=== PATIENT | female | born 1980 | race Two or more races ===

== ENCOUNTER 2020-10-26 16:45 | Emergency (ER) | payer MEDICAID, SELFPAY ==
[2020-10-26 16:49] VITALS: BP 121/87; PULSE 89; RESP 16; TEMP 36.8; O2SAT 99; BMI 32.0
[2020-10-26] MEDS: Diphth,Pertus(ACell),Tet Adult 0.5 ML SYRINGE IM (18:33)
[2020-10-26] MEDS: Lidocaine HCl 1% PF/Epi 1:200,000 30 ML VIAL INFILTRATI (18:33)
--- NOTE | 2020-10-26 18:35 | ED.WOUNDLAC ---
HPI - Wound/Laceration General Chief Complaint: Wound/Laceration Stated Complaint: lac Time Seen by Provider: 10/26/20 17:49 Source: patient Mode of arrival: ambulatory Limitations: no limitations History of Present Illness HPI narrative: 40-year-old female here with laceration to the left hand. Patient tells me she was opening up a gif with a knife in her hand slipped causing her to cut her left palm. Tetanus status unknown Related Data Allergies Allergy/AdvReac Type Severity Reaction Status Date / Time No Known Allergies Allergy Verified 10/26/20 17:14 Review of Systems Review of Systems: Yes all other systems are reviewed and are negative Constitutional: Constitutional: Reports no additional constitutional complaints, Denies body ache(s), Denies chills, Denies fever(s), Denies headache(s) and Denies weakness Eyes: Eyes: Reports no additional eye complaints and Denies change in vision ENT: Reports system reviewed and no additional complaints, except as documented, Denies dizziness, Denies headache(s), Denies nasal congestion, Denies nasal discharge and Denies neck pain Cardiovascular: Cardiovascular: Reports no additional cardiovascular complaints, Denies chest pain, Denies leg edema and Denies dyspnea Respiratory: Respiratory: Reports no additional respiratory complaints, Denies cough and Denies dyspnea Gastrointestinal: Gastrointestinal: Reports no additional gastrointestinal complaints, Denies abdominal pain, Denies diarrhea, Denies nausea and Denies vomiting Genitourinary: Genitourinary: Reports no additional female genitourinary complaints and Denies urinary incontinence Musculoskeletal: Musculoskeletal: Reports no additional musculoskeletal complaints, Denies back pain, Denies arthralgias, Denies joint swelling, Denies neck pain, Denies numbness and Denies tingling Integumentary/Breasts: Skin/Breast: Reports system reviewed and no additional complaints, except as docu and Denies rash Comments: +laceration Neurologic: Reports system reviewed and no additional complaints, except as documented, Denies Abnormal speech present, Denies dizziness, Denies headache(s), Denies numbness, Denies tingling and Denies weakness PMFSH Past Medical History Attestation statement: The following information was validated with the patient. Source: old records reviewed and nursing notes reviewed Surgical History H/O tubal ligation Social History Social History Alcohol intake: never Smoked in Last 30 Days: No Use of substances other than those prescribed or required for medical reasons: No Substance Use Type: Marijuana Advance Directives: No Advance Directives Information Provided: No Physical Exam Vital Signs: Vital Signs: Last Vital Signs Temp 98.3 F 10/26/20 16:49 Pulse 89 10/26/20 16:49 Resp 16 10/26/20 16:49 BP 121/87 10/26/20 16:49 Pulse Ox 99 10/26/20 16:49 Body Mass Index 32.0 Const: General: cooperative, healthy appearing, comfortable and no acute distress Orientation/consciousness: patient oriented x3 Limitations: no limitations HENMT: Head: Yes normal to inspection Ears: hearing grossly normal bilaterally General nose exam: Normal external nose present Face and sinus: Yes normal facial exam Mouth: Normal oral and palatal mucosa present Throat: Yes posterior oropharynx normal Eyes: General: appearance normal, both eyes and all related structures Pupils: Equal, round and reactive pupils present Neck: Neck: Yes normal visual inspection Chest: Chest palpation & inspection: normal inspection of the chest Resp: Effort & Inspection: normal respiratory effort Auscultation: clear to auscultation bilaterally Cardio: Rate: regular rate Rhythm: regular rhythm Peripheral pulses: Peripheral pulses 2+ throughout GI: Inspection: Yes normal to inspection Palpation (GI): Soft to palpation and nontender Auscultation: normal bowel sounds Back/Spine/Pelvis: Thoracic/Lumbar Spine: thoracic and lumbar spine normal to inspection Skin: General skin exam: no rashes or lesions noted Neuro: General: patient oriented x3, no focal motor deficits and normal sensation to monofilament Cranial nerves: Yes Equal, round and reactive pupils present Cognition (Neuro): normal cognition Speech: No Abnormal speech present Gait exam (Neuro): Normal gait present Motor exam (neuro): 5/5 motor strength present throughout Extrem: General: Yes normal to inspection Hand/finger images: 1. 1cm laceration with active bleeding. CMS intact proximally and distally with normal cap refill Course Course Course Narrative: 40-year-old female here with laceration to the left palmar aspect of the hand from a knife. There is a small 1 cm laceration with active bleeding at the site. CMS intact distally to the site. Tetanus status unknown so will give dose here today. 1845-see wound repair note. Tetanus updated. Reviewed worrisome signs and symptoms when to return to the emergency department. Comfortable discharge home. Procedures Procedure Narrative Procedure Narrative: Active bleeding from laceration site which was a moderate amount. Injected 5 mL of lidocaine with epinephrine to the site and bleeding was improved. Laceration Laceration 1: Site: upper extremity Side (If applicable): left Size (cm): 1 Description: linear Depth: simple, single layer Local Anesthetic: lidocaine 1% and with epi Amount of anesthesia used (mL): 5 Pre-repair: wound explored and irrigated extensively Skin layer closed with: vicryl Size (cm): 5-0 Number of sutures: 3 Technique: simple, interrupted MDM - Wound/Laceration Medical Records Attestation: I reviewed the patient's medical records. Lab Data Attestation: I reviewed the patient's lab results. Discharge Plan Discharge Clinical Impression: Laceration Patient Disposition: Home, Self-Care Instructions: Laceration (ED) Additional Instructions: Water can run over the stitches but do not like them soak in water Return in 7-10 days for removal Referrals: Physician,Unknown [Primary Care Provider] - 2 days
== END 2020-10-26 19:27 | disposition home or self-care (01) ==
PROVIDERS: Emergency Provider Emergency Medicine Emergency Medical Services
DX: S61.412A Laceration without foreign body of left hand, initial encounter (principal); M79.642 Pain in left hand; F12.90 Cannabis use, unspecified, uncomplicated; W26.0XXA Contact with knife, initial encounter; Y93.9 Activity, unspecified; Y92.9 Unspecified place or not applicable; Y99.9 Unspecified external cause status
CPT/HCPCS: 12001; 90471; 90715; 99284

== ENCOUNTER 2020-11-06 18:18 | Emergency (ER) | payer MEDICAID, SELFPAY ==
[2020-11-06 18:25] VITALS: BP 131/85; PULSE 120; RESP 18; TEMP 36.8; O2SAT 99; BMI 27.7
--- NOTE | 2020-11-06 19:42 | ED_ITS ---
HPI - General Adult General Chief complaint: General Medical Stated complaint: suture removaql Time Seen by Provider: 11/06/20 19:37 Source: patient Mode of arrival: ambulatory Limitations: no limitations History of Present Illness HPI narrative: Patient seen here October 26 for sutures placed to the left hand. Patient tells me that she delayed getting them removed due to other priorities at home. She denies any complaints.. Related Data Allergies Allergy/AdvReac Type Severity Reaction Status Date / Time No Known Allergies Allergy Verified 10/26/20 17:14 Review of Systems Review of Systems: Yes all other systems are reviewed and are negative Constitutional: Constitutional: Reports no additional constitutional complaints, Denies body ache(s), Denies chills, Denies fever(s), Denies headache(s) and Denies weakness Eyes: Eyes: Reports no additional eye complaints and Denies change in vision ENT: Reports system reviewed and no additional complaints, except as documented, Denies dizziness, Denies headache(s), Denies nasal congestion, Denies nasal discharge and Denies neck pain Cardiovascular: Cardiovascular: Reports no additional cardiovascular complaints, Denies chest pain, Denies leg edema and Denies dyspnea Respiratory: Respiratory: Reports no additional respiratory complaints, Denies cough and Denies dyspnea Gastrointestinal: Gastrointestinal: Reports no additional gastrointestinal complaints, Denies abdominal pain, Denies diarrhea, Denies nausea and Denies vomiting Genitourinary: Genitourinary: Reports no additional female genitourinary complaints and Denies urinary incontinence Musculoskeletal: Musculoskeletal: Reports no additional musculoskeletal complaints, Denies back pain, Denies arthralgias, Denies joint swelling, Denies neck pain, Denies numbness and Denies tingling Integumentary/Breasts: Skin/Breast: Reports system reviewed and no additional complaints, except as docu and Denies rash Comments: +lac Neurologic: Reports system reviewed and no additional complaints, except as documented, Denies Abnormal speech present, Denies dizziness, Denies headache(s), Denies numbness, Denies tingling and Denies weakness PMFSH Past Medical History Attestation statement: The following information was validated with the patient. Source: old records reviewed and nursing notes reviewed Surgical History H/O tubal ligation Social History Social History Alcohol intake: never Substance Use Type: Marijuana Advance Directives: No Advance Directives Information Provided: Yes Physical Exam Vital Signs: Vital Signs: Last Vital Signs Temp 98.2 F 11/06/20 18:25 Pulse 120 H 11/06/20 18:25 Resp 18 11/06/20 18:25 BP 131/85 11/06/20 18:25 Pulse Ox 99 11/06/20 18:25 Body Mass Index 27.7 Const: General: cooperative, healthy appearing, comfortable and no acute distress Orientation/consciousness: patient oriented x3 Limitations: no limitations HENMT: Head: Yes normal to inspection Ears: hearing grossly normal bilate rally General nose exam: Normal external nose present Face and sinus: Yes normal facial exam Mouth: Normal oral and palatal mucosa present Throat: Yes posterior oropharynx normal Eyes: General: appearance normal, both eyes and all related structures Pupils: Equal, round and reactive pupils present Neck: Neck: Yes normal visual inspection Chest: Chest palpation & inspection: normal inspection of the chest Resp: Effort & Inspection: normal respiratory effort Auscultation: clear to auscultation bilaterally Cardio: Rate: regular rate Rhythm: regular rhythm Peripheral pulses: Peripheral pulses 2+ throughout GI: Inspection: Yes normal to inspection Palpation (GI): Soft to palpation and nontender Auscultation: normal bowel sounds Back/Spine/Pelvis: Thoracic/Lumbar Spine: thoracic and lumbar spine normal to inspection Skin: General skin exam: no rashes or lesions noted Neuro: General: patient oriented x3, no focal motor deficits and normal se nsation to monofilament Cranial nerves: Yes Equal, round and reactive pupils present Cognition (Neuro): normal cognition Speech: No Abnormal speech present Gait exam (Neuro): Normal gait present Motor exam (neuro): 5/5 motor strength present throughout Extrem: Other: To the palmar aspect of the left hand there are 3 sutures present. There is no erythema, fluctuance or drainage. The edges are well approximated General: Yes normal to inspection Course Course Course Narrative: CC suture removal procedure. No complications. Procedures Procedure Narrative Procedure Narrative: Three sutures removed left hand Discharge Plan Discharge Clinical Impression: Visit for suture removal Patient Disposition: Home, Self-Care Instructions: Stitches Removal (ED)
== END 2020-11-06 19:44 | disposition home or self-care (01) ==
PROVIDERS: Emergency Provider Internal Medicine
DX: Z48.02 Encounter for removal of sutures (principal); F12.90 Cannabis use, unspecified, uncomplicated
CPT/HCPCS: 99283; 99284

== ENCOUNTER 2022-06-30 14:58 | Emergency (ER) | payer MEDICAID, SELFPAY ==
--- NOTE | ~2022-06-30 | XR_ITS ---
EXAMINATION: XR CHEST CLINICAL INFORMATION: Chest pain COMPARISON: None TECHNIQUE: 2 views of the chest were obtained. FINDINGS: No significant abnormality is noted involving the heart, lungs, mediastinum, bony thorax or soft tissues. XR/XR chest 2V IMPRESSION: Unremarkable examination.
--- NOTE | 2022-06-30 15:08 | ECG_ITS ---
Test Reason : cp/sob Blood Pressure : / mmHG Vent. Rate : 081 BPM Atrial Rate : 081 BPM P-R Int : 162 ms QRS Dur : 066 ms QT Int : 360 ms P-R-T Axes : 055 -02 041 degrees QTc Int : 418 ms Normal sinus rhythm Normal ECG No previous ECGs available Referred By: Generic ED Physician Electronically Signed By:KWABENA CHAMPION MD
[2022-06-30 16:02] VITALS: BP 141/87; PULSE 92; RESP 16; TEMP 36.6; O2SAT 99; BMI 28.5
--- NOTE | 2022-06-30 16:03 | ED.CHESTPAIN ---
HPI - Chest Pain General Chief Complaint: Chest Pain Stated Complaint: CP, sob, back of head pain Time Seen by Provider: 06/30/22 16:46 Source: patient Mode of arrival: ambulatory Limitations: no limitations History of Present Illness HPI narrative: 42 y/o female with no medical problems who presents to the ER for evaluation of 3 months of intermittent central chest pains that are nonradiating and come and go. She reports they are associated with shortness of breath, dizziness and anxiety. They occur when she is stressed out and crying. Today the pain was worse when she found out her was cheating on her. No current chest pain. She is tearful on arrival. She denies any cardiac risk factors. MD complaint: chest pain Onset (ago): month(s) (3) Timing of current episode: episodic Prior episodes: Yes Onset: during rest Pain location: parasternal Pain radiation: none Severity: moderate Quality: heaviness and sharp Relieving factors: rest Exacerbating factors: stress Associated symptoms: dyspnea Treatment prior to arrival: none Risk Factors Coronary artery disease risk factors: none Thoracic aortic dissection risk factors: none Related Data On Oral Contraceptives: No Previous Rx's Medication Instructions Recorded hydroxyzine HCl 25 mg tablet 25 mg PO TID PRN anxiety #20 tabs 06/30/22 Allergies Allergy/AdvReac Type Severity Reaction Status Date / Time No Known Allergies Allergy Verified 06/30/22 16:07 Review of Systems Review of Systems: Constitutional: No Fever, No Chills ENT/Mouth: No sore throat, No Rhinorrhea Cardiovascular: + Chest Pain, + SOB, No Orthopnea, No Edema Respiratory: No Cough, No Sputum, No Wheezing, No dyspnea Gastrointestinal: No Nausea, No Vomiting, No Diarrhea, No abdominal Pain Musculoskeletal: No joint pain, No Myalgias Skin: No Skin Lesions, No rash Neuro: No Weakness, No Numbness, + Dizziness, No Headache Psych: +Anxiety/Panic, +Depression, No SI, No HI, Heme/Lymph: No Bruising, No Lymphadenopathy PMFSH Past Medical History Surgical History H/O tubal ligation Social History Social History Alcohol intake: never Substance Use Type: Marijuana Physical Exam Vital Signs: Vital Signs: Last Vital Signs Temp 97.9 F 06/30/22 16:02 Pulse 92 06/30/22 16:02 Resp 16 06/30/22 16:02 BP 141/87 H 06/30/22 16:02 Pulse Ox 99 06/30/22 16:02 O2 Del Method 06/30/22 16:02 BMI result Body Mass Index 28.5 Appearance: Alert. Oriented X3. No acute distress. HEENT: normal external inspection Neck: Normal inspection. Neck supple. CVS: Normal heart rate and rhythm. Pulses normal. Nontender chest wall Respiratory: No respiratory distress. Breath sounds normal. Abdomen: Soft and nontender. +BS x4 Skin: Skin warm and dry. Normal skin color. Normal skin turgor. No rashes. Extremities: No lower extremity edema. Neuro/psych Oriented X 3. No motor deficit. No sensory deficit. CN II-XII intact. Anxious and tearful Course Course Course Narrative: 16:06 - 42 yo female with no medical history presenting to the ER for evaluation of intermittent central chest pains that are sharp and come and go with emotional stress. EKG normal. CXR normal. No cardiac risk factors. PERC negative. Most likely all due to anxiety and stress. Will d/c with PRN hydroxyzine and have her f/u with a therapist. Given return precautions. Medical Decision Making Independent Interpretation I performed an independent interpretation of an: EKG and Plain X-Ray Interpretation: normal sinus rhythm, vent rate 81 bpm, normal VT interval, normal QTc, no ST segment elevations or depressions Critical Care Time Critical Care Time Critical Care Time: No Discharge Plan Discharge Clinical Impression: Atypical chest pain, Anxiety Patient Disposition: Home, Self-Care Instructions: Noncardiac Chest Pain (ED), Anxiety (ED) Additional Instructions: Your EKG was normal. Your chest x-ray was normal. Take the prescribed medication as needed for anxiety. Recommend following up with a primary care doctor and getting a therapist to help cope with your significant stress at home. You can also try calling your insurance company to see who is in your network for therapists. Prescriptions: New hydroxyzine HCl 25 mg tablet 25 mg PO TID PRN (Reason: anxiety) Qty: 20 0RF
== END 2022-06-30 17:09 | disposition home or self-care (01) ==
LOC: HO.ED 17:00
PROVIDERS: Emergency Provider Emergency Medicine
DX: R07.89 Other chest pain (principal); R51.9 Headache, unspecified; F41.1 Generalized anxiety disorder; F43.0 Acute stress reaction
CPT/HCPCS: 71046; 93005; 99283

== ENCOUNTER 2022-11-25 15:43 | Outpatient (REF) | payer MEDICAID, SELFPAY ==
--- NOTE | ~2022-11-25 | MM_ITS ---
EXAMINATION: MM SCREENING DIGITAL BREAST TOMOSYNTHESIS, BILATERAL CLINICAL INFORMATION: Screening. Asymptomatic. Age 42. No prior breast imaging. The lifetime risk of breast cancer based on the Tyrer-Cuzick Model is 13%. COMPARISON: None (current study represents initial baseline exam). TECHNIQUE: Digital breast tomosynthesis is performed in both the craniocaudal and mediolateral oblique views along with computer-aided detection (CAD). Synthesized 2D images are generated from the tomosynthesis. FINDINGS: There are scattered areas of fibroglandular density (ACR BI-RADS breast composition Category b). There is no significant mass or architectural abnormality. The axilla and skin contours are unremarkable. There are a few scattered punctate round benign calcified lesions. There are questionable loosely grouped round calcifications mid upper outer left breast. As this represents initial baseline exam, patient will be recalled for additional magnification views on the left. MM/MM tomosynthesis screening BI IMPRESSION: Left: -Questionable loosely grouped round calcifications mid outer left breast. Right: -No mammographic evidence of malignancy. ASSESSMENT: BI-RADS 0: Incomplete - Need Additional Imaging Evaluation RECOMMENDATION: 1. Additional views left breast (magnification CC, magnification ML). 2. Radiology department staff will contact the patient for additional imaging. This patient's information was entered into a reminder system with a target due date for their next mammogram.
== END 2022-11-25 15:44 | disposition home or self-care (01) ==
LOC: HO.MAMMO 15:43
PROVIDERS: PCP Nurse Practitioner Family; Visit Provider Nurse Practitioner Family
DX: Z12.31 Encounter for screening mammogram for malignant neoplasm of breast (principal)
CPT/HCPCS: 77063; 77067

== ENCOUNTER 2022-12-02 08:33 | Outpatient (REF) | payer MEDICAID, SELFPAY ==
--- NOTE | ~2022-12-02 | MM_ITS ---
EXAMINATION: MM DIAGNOSTIC DIGITAL MAMMOGRAPHY, LEFT CLINICAL INFORMATION: Recall from baseline screening for calcifications left breast. COMPARISON: Mammography: 11/25/2022 (baseline, BI-RADS 0). TECHNIQUE: Digital mammography is performed in the following views: Magnification CC, magnification ML. FINDINGS: There are scattered areas of fibroglandular density (ACR BI-RADS breast composition Category b). The additional magnification views show regional scattered calcifications in the upper outer quadrant. There are no focal suspicious three-dimensional grouped or pleomorphic calcifications. Results are discussed with the patient at time of visit. MM/MM added views LT IMPRESSION: Regional calcifications upper outer left breast, probably benign. ASSESSMENT: BI-RADS 3: Probably Benign RECOMMENDATION: Diagnostic left mammography in 6 months. This patient's information was entered into a reminder system with a target due date for their next mammogram.
== END 2022-12-02 08:34 | disposition home or self-care (01) ==
LOC: HO.MAMMO 08:33
PROVIDERS: PCP Nurse Practitioner Family; Visit Provider Nurse Practitioner Family
DX: R92.1 Mammographic calcification found on diagnostic imaging of breast (principal)
CPT/HCPCS: 77065

== ENCOUNTER 2023-06-14 10:44 | Outpatient (REF) | payer MEDICAID, SELFPAY ==
--- NOTE | ~2023-06-14 | MM_ITS ---
EXAMINATION: MM DIAGNOSTIC DIGITAL BREAST TOMOSYNTHESIS, RIGHT CLINICAL INFORMATION: Recommended short interval six-month follow-up of upper outer quadrant left breast calcifications initially noted in November 2022 and subsequently evaluated with diagnostic imaging on 12/02/2022. COMPARISON: Mammography: This study is compared with multiple prior mammograms dating back to 2021. TECHNIQUE: Digital breast tomosynthesis is performed in both the craniocaudal and mediolateral oblique views along with computer-aided detection (CAD). Synthesized 2D images are generated from the tomosynthesis. FINDINGS: There are scattered areas of fibroglandular density (ACR BI-RADS breast composition Category b). There are no significant masses, abnormal calcifications, or other abnormalities in the left breast. There is benign, layering milk of calcium in the upper outer quadrant of the left breast. This is evidenced by the calcifications appearing amorphous in the CC projection and well defined in the lateral projection. This is benign. MM/MM tomosynthesis diagnostic LT IMPRESSION: No mammographic signs of malignancy left breast. Calcifications of the upper outer quadrant of the left breast represent benign milk of calcium. The next routine annual bilateral screening mammogram is due in November 2023. ASSESSMENT: BI-RADS BI-RADS 2 - Benign Findings RECOMMENDATION: 1 year F/U Results were provided to the patient at time of visit by the technologist. This patient's information was entered into a reminder system with a target due date for their next mammogram.
== END 2023-06-14 10:45 | disposition home or self-care (01) ==
LOC: HO.MAMMO 10:44
PROVIDERS: PCP Nurse Practitioner Family; Visit Provider Nurse Practitioner Family
DX: R92.1 Mammographic calcification found on diagnostic imaging of breast (principal)
CPT/HCPCS: 77061; 77065

== ENCOUNTER → 2023-06-14 11:00 | Outpatient (BNV) | payer MEDICAID, SELFPAY | PROVIDERS: PCP Nurse Practitioner Family; Visit Provider Radiology Diagnostic Radiology | DX: R92.1 Mammographic calcification found on diagnostic imaging of breast (principal) | CPT/HCPCS: 77061; 77065 ==

== ENCOUNTER 2025-01-07 12:00 | Outpatient (REF) | payer MEDICAID, SELFPAY ==
--- OUTSIDE RECORDS SUMMARY | 2025-01-07 12:52 | XMS_ITS | Clinical Summary ---
Author Organization [employer] Address [address] [facility] [address] [place] [address] Care Team Providers Care Heel Brusher Name Role Phone DyanZee shen CHERYL Primary Care Provider [phone] Allergies No known active allergies Medications Blood Pressure Monitor kit 1 kit 2 times daily. 1 kit 3 Active cetirizine (ZyrTEC) 10 MG tablet Take 1 tablet (10 mg) by mouth in the morning. 30 tablet 11 3 Active cephalexin (Keflex) 750 MG capsule Take 1 capsule (750 mg) by mouth 2 times daily for 7 days. 14 capsule 5 01/09/20 25 Active nystatin (Mycostatin) 810729 UNIT/GM powder Apply to affected area 3 times daily 120 g 1 5 01/02/20 26 Active ketoconazole (NIZOral) 2 % creamIndication s:Candidiasis, intertrigo Apply topically Once per day. 40 g 1 5 Active Active Problems Problem Noted Date Diagnosed Date Healthcare maintenance 01/01/2025 Assessment & Plan (01/01/2025 1:53 PM EDT): Cardiovascular labs ordered Referral for mammogram Pap scheduled Anticipatory guidance reviewed Elevated blood pressure reading 01/01/2025 Assessment & Plan (01/01/2025 1:52 PM EDT): Above goal today, Pt plans to minimize salt, Pt to measure at home Return to clinic in 4 weeks Encounter for screening mamm ogram for malignant neoplasm of breast 01/01/2025 Assessment & Plan (01/01/2025 1:53 PM EDT): Mammogram ordered Dietary counseling 01/01/2025 Assessment & Plan (01/01/2025 11:44 AM EDT): Dietary Recommendations: Fruits, vegetables, whole grains, protein foods, and fat-free or low-fat dairy products are healthy choices. Eat different types of protein foods in your diet. This can include seafood, lean meats, poultry, beans, peas, lentils, nuts, seeds, soy products, and eggs. Limit foods and beverages higher in added sugars, saturated fat, and sodium. Exercise Recommendations: At least 150 minutes of moderate-intensity physical activity per week, or an equivalent combination of moderate- and vigorous-intensity activity Exercise counseling 01/01/2025 Ingrown right big toenail 01/01/2025 Paronychia of great toe 01/01/2025 Assessment & Plan (01/01/2025 1:55 PM EDT): Use warm soaks, If no improvement may add antibiotics, If starts abx please complete course, Candidiasis, intertrigo 01/01/2025 Assessment & Plan (01/01/2025 1:54 PM EDT): Under breast, rx as written below as needed Do not use for longer than 14 days Resolved Problems Problem Noted Date Diagnosed Date Resolved Date Tobacco user 01/01/2025 01/01/2025 Encounters Date Type Department Care Team Description 01/01/2025 11:00 AM EDT Office Visit [facility] [address] [place] [id number] Zee Quintero NP Healthcare maintenance (Primary Dx); Elevated blood pressure reading; Encounter for screening mammogram for malignant neoplasm of breast; Dietary counseling; Exercise counseling; Ingrown right big toenail; Paronychia of great toe; Candidiasis, intertrigo 01/01/2025 Travel 12/31/[address] [facility] [address] [place] [phone] Zee Quintero NP Chart Prep 12/26/[address] [facility] [address] [place] [phone] Zee Quintero NP Care Coordination (CHW outreach for SDOH housing search-referral completed ) 12/25/[address] [facility] [address] [place] [address] Zee Quintero NP Pre-visit Planning (SDOH screening positive and Tobacco screening negative) from Last 3 Months Family History Medical History Relation Name Comments HIV Father Hypertension Father Diabetes type II Mother HIV Mother Hypertension Mother Breast cancer Paternal Grandmother Relation Name Status Comments Father Mother Paternal Grandmother Social History Tobacco Use Types Packs/Day Years Used Date Smoking Tobacco: Former Cigarettes Q uit: 2010 Smokeless Tobacco: Never Tobacco Cessation:Counseling Given: Not Answered Alcohol Use Standard Drinks/Week Comments Not Currently 0 (1 standard drink = 0.6 oz pur e alcohol) Housing Stability Answer Date Recorded What is your housing situation today? I have maxx braun 12/25/[address] you li ve. Do you have problems with any of the following? Pests such as bugs, ants, or mice;Mold 12/25/2024 Food Insecurity Answer Date Recorded Within the past 12 months, y ou worried that your food would run out before you got money to buy more: Never True 12/25/2024 Within the past 12 months,th e food you bought just didn't last and you didn't have enough money to get more: Never True Transportation Answer Date Recorded In the past 12 months, has l ack of transportation kept you from medical appts, meetings, work or from getting things needed for daily living? No 12/25/2024 Utilities Answer Date Recorded In the past 12 months, has t he electric, gas, oil or water company threatened to shut off services in your home? 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 Not on file Not on file Not on file Last Filed Vital Signs Vital Sign Reading Time Taken Comments Blood Pressure 150/100 01/01/2025 11:11 AM EDT Pulse 60 01/01/2025 11:11 AM EDT Temperature 36.3 C (97.4 F) 01/01/2025 11:11 AM EDT Respiratory Rate 16 01/01/2025 11:11 AM EDT Oxygen Saturation - - Inhaled Oxygen Concentration - - Weight 78 kg (172 lb) 01/01/2025 11:11 AM EDT Height 152.4 cm (5') 01/01/2025 11:11 AM EDT Body Mass Index 33.59 01/01/2025 11:11 AM EDT Plan of Treatment Health Maintenance Due Date Last Done Comments Depression Screening 1982 Family Planning (PISQ) 1997 HPV Vaccines (1 - 3-dose series) 1997 Hepatitis C Screening 2000 Hepatitis B Vaccines (1 of 3 - 19+ 3-dose series) 2001 Pap Smear 2003 Cervical Cancer Screening 2012 HPV/Cotest 2012 COVID-19 Vaccine (2 - 2023-2 5 season) 2024 10/11/2020 Influenza Vaccine (#1) 2025 Mammogram 06/14/2025 06/14/2023, 12/02/2022, 11/25/2022 SDOH Screening 12/25/2025 12/25/2024 Alcohol/Substance Use Screening 01/01/2026 01/01/2025 Disability Screening 01/01/2026 01/01/2025 Tobacco Screening 01/01/2026 01/01/2025 DTaP/Tdap/Td Vaccines (2 - T d or Tdap) 10/26/2030 10/26/2020 Zoster Vaccines (1 of 2) 2032 RSV Patients and Patients Aged 60 years or older (1 - 1-dose 75+ series) 2057 HIV Screening Completed 11/10/2022 HIB Vaccines Aged Out No longer eligi ble based on patient's age to complete this topic Hepatitis A Vaccines Aged Out No long er eligible based on patient's age to complete this topic IPV Vaccines Aged Out No longer eligi ble based on patient's age to complete this topic Meningococcal B Vaccine Aged Out No l onger eligible based on patient's age to complete this topic Meningococcal Vaccine Aged Out No karl yessica eligible based on patient's age to complete this topic Pneumococcal Vaccine: Pediatrics (0 to 5 Years) and At-Risk Patients (6 to 49) Years Aged Out No longer eligible b ased on patient's age to complete this topic RSV under 20 months Aged Out No longe r eligible based on patient's age to complete this topic Rotavirus Vaccines Aged Out No longer eligible based on patient's age to complete this topic Procedures Procedure Name Priority Date/Time Associated Diagnosis Comments BI MAMMOGRAM DIAGNOSTIC TOMOSYNTHESIS LEFT Routine 06/14/2023 11:06 AM EST HIV 1 RNA, QN PCR W/RFL MARGARITA (RTI,PI,INTEGRASE) Routine 11/10/2022 3:09 PM EDT Routine screening for STI (sexually transmitted infection) from Last 3 Months or Most Recently Relevant to Health Maintenance Results * BI Mammogram Diagnostic Tomosynthesis Left (06/14/2023 11:06 AM EST) Anatomical Region Laterality Modality Breast Left Mammography 06/14/2023 11:0 6 AM EST Narrative 06/14/2023 11:40 AM EST [facility] [address] [place] [address] Mammography Report Signed Patient: Tamiko Roche MR#: [id number] : 1980 Acct:[id number] Age/Sex: 43 / F ADM Date: 06/14/23 Loc: [facility] Attending Dr: Idalia Hightower DX BOARD OPERATOR Ordering Physician: Idalia Hightower NP Results: 2Benign Findings Date of Service: 06/14/23 Follow Up: 1 Year From Orig inal Mammogram Procedure(s): MM tomosynthesis diagnostic LT Accession Number(s): [id number] cc: Idalia Hightower DX BOARD OPERATOR EXAMINATION: MM DIAGNOSTIC DIGITAL BREAST TOMOSYNTHESIS, RIGHT CLINICAL INFORMATION: Recommended short interval six-month follow-up of upper outer quadrant left breast calcifications initially noted in November 2022 and subsequently evaluated with diagnostic imaging on 12/02/2022. COMPARISON: Mammography: This study is compared with multiple prior mammograms dating back to 2021. TECHNIQUE: Digital breast tomosynthesis is performed in both the craniocaudal and mediolateral oblique views along with computer-aided detection (CAD). Synthesized 2D images are generated from the tomosynthesis. FINDINGS: There are scattered areas of fibroglandular density (ACR BI-RADS breast composition Category b). There are no significant masses, abnormal calcifications, or other abnormalities in the left breast. There is benign, layering milk of calcium in the upper outer quadrant of the left breast. This is evidenced by the calcifications appearing amorphous in the CC projection and well defined in the lateral projection. This is benign. MM/MM tomosynthesis diagnostic LT IMPRESSION: No mammographic signs of malignancy left breast. Calcifications of the upper outer quadrant of the left breast represent benign milk of calcium. The next routine annual bilateral screening mammogram is due in November 2023. ASSESSMENT: BI-RADS BI-RADS 2 - Benign Findings RECOMMENDATION: 1 year F/U Results were provided to the patient at time of visit by the technologist. This patient's information was entered into a reminder system with a target due date for their next mammogram. Dictated By: Mayda Mcginnis MD Signed By: <Electronically signed by Mayda Mcginnis MD in OV> 06/14/23 1135 DD/ 1106 TD/TT: Livestock Trucker: Procedure Note Donotuseinterpreter, Image - [facility] [address] [place], [place] [address] Mammography Report Signed Patient: Tamiko Roche#: [id number] : 1980Acct:[id number] Age/Sex: 43 / FADM Date: 06/14/23 Loc: [facility] Attending Dr: Idalia Hightower DX BOARD OPERATOR Ordering Physician: Idalia Hightower NPResults: 2Benign Findings Date of Service: 06/14/23Follow Up: 1 Year From Orig inal Mammogram Procedure(s): MM tomosynthesis diagnostic LT Accession Number(s): [id number] cc: Idalia Hightower DX BOARD OPERATOR EXAMINATION: MM DIAGNOSTIC DIGITAL BREAST TOMOSYNTHESIS, RIGHT CLINICAL INFORMATION: Recommended short interval six-month follow-up of upper outer quadrant left breast calcifications initially noted in November 2022 and subsequently evaluated with diagnostic imaging on 12/02/2022. COMPARISON: Mammography: This study is compared with multiple prior mammograms dating back to 2021. TECHNIQUE: Digital breast tomosynthesis is performed in both the craniocaudal and mediolateral oblique views along with computer-aided detection (CAD). Synthesized 2D images are generated from the tomosynthesis. FINDINGS: There are scattered areas of fibroglandular density (ACR BI-RADS breast composition Category b). There are no significant masses, abnormal calcifications, or other abnormalities in the left breast. There is benign, layering milk of calcium in the upper outer quadrant of the left breast. This is evidenced by the calcifications appearing amorphous in the CC projection and well defined in the lateral projection. This is benign. MM/MM tomosynthesis diagnostic LT IMPRESSION: No mammographic signs of malignancy left breast. Calcifications of the upper outer quadrant of the left breast represent benign milk of calcium. The next routine annual bilateral screening mammogram is due in November 2023. ASSESSMENT: BI-RADS BI-RADS 2 - Benign Findings RECOMMENDATION: 1 year F/U Results were provided to the patient at time of visit by the technologist. This patient's information was entered into a reminder system with a target due date for their next mammogram. Dictated By: Mayda Mcginnis MD Signed By: <Electronically signed by Mayda Mcginnis MD in OV> 06/14/23 1135 DD/ 1106 TD/TT: Livestock Trucker: [facility] PROCED[facility] Final Result * HIV-1 RNA, Quantitative, Real-Time PCR with Reflex to Genotype (RTI, PI, Integrase) (11/10/2022 3:09 PM EDT) HIV 1 RNA, QN PCR NOT DETECTED copies/mL [facility], HIV 1 RNA, QN PCR NOT DETECTED Log copies/mL [facility], Comment: REFERENCE RANGE: NOT DETECTED copies/mL NOT DETECTED Log copies/mL This test was performed using Real-Time Polymerase Chain Reaction. Reportable range is 20 to 10,000,000 copies/mL (1.30-7.00 Log copies/mL). 11/10/2022 3:09 PM EDT 11/10/2022 3:10 PM EDT Idalia Hightower BAG WORKER LAB BLOOD ORDERABLES Final Resu lt [facility] [address] [facility], [facility], [place] [address] [employer], [address] [place] [address] from Last 3 Months or Most Recently Relevant to Health Maintenance Insurance [facility] Care Teams Heel Brusher Relationship Specialty Start Date End Date Zee Quintero NP [address] [place] [address] PCP - General Family Medicine 10/11/24
[2025-01-07 15:07] LABS: Alanine Aminotransferase 10 U/L (0-31); Albumin Level 4.5 g/dL (3.5-5.0); Alkaline Phosphatase 100 U/L (39-117); Anion Gap 11 (12-20); Aspartate Amino Transferase 18 U/L (5-31); Blood Urea Nitrogen 11 mg/dL (9-16); Calcium 9.3 mg/dL (8.4-10.2); Carbon Dioxide 26 mmol/L (22-29); Chloride 106 mmol/L (96-108); Cholesterol 233 mg/dL (<200); Estimated Glomerular Filt Rate > 60; HDL Cholesterol 33 mg/dL (>40); Potassium 4.3 mmol/L (3.3-5.1); Sodium 139 mmol/L (135-145); Total Protein 7.3 g/dL (6.5-8.0); Triglycerides 173 mg/dL (<150)
[2025-01-08 08:27] LABS: HIV Num 1 0.04 S/CO (0.00-0.99); ~HepC Num1 0.09 S/CO (0.00-0.79); ~Hepatitis C Antibody Nonreactive (Nonreactive)
== END 2025-01-07 12:01 | disposition home or self-care (01) ==
LOC: HO.HHCL 12:00
PROVIDERS: PCP Nurse Practitioner Family; Visit Provider Nurse Practitioner Family
DX: Z00.00 Encounter for general adult medical examination without abnormal findings (principal); R03.0 Elevated blood-pressure reading, without diagnosis of hypertension
CPT/HCPCS: 36415; 80053; 80061; 86592; 86803; 87389

== ENCOUNTER 2025-03-01 14:42 | Outpatient (REF) | payer MEDICAID, SELFPAY ==
--- OUTSIDE RECORDS SUMMARY | 2025-03-01 14:45 | XMS_ITS | Clinical Summary ---
Author Organization [address] [facility] Address [address] [place] [address] Phone Care Team Providers Care Para Professional Name Role Phone Zee Quintero HANG Primary Care Provider [phone] Social History Tobacco Use Types Packs/Day Years Used Date Smoking Tobacco: Never Assessed Comments Unknown Sex and Gender Information Value Date Recorded Sex Assigned at Not on file Legal Sex Female 12:02 PM EST Gender Identity Not on file Sexual Orientation Not on file Plan of Treatment Upcoming Encounters Date Type Department Care Team ([facility] Contact Info) Description 03/06/2025 3:15 PM EDT Consult Orthopedic Surgery - [place] [id number] [phone] Jose Parry DPRaad [address] [address] Health Maintenance Due Date Last Done Comments Breast Cancer Screening 1982 DTaP,Tdap,and Td Vaccines (1 - Tdap) 2001 Hepatitis B Vaccines (1 of 3 - 19+ 3-dose series) 2001 Cervical Cancer Screening: P ap Smear 2003 COVID-19 Vaccine (2023-2 5 season) 2024 Depression Screening 07/04/2024 HIV Screening 01/04/2025 Hepatitis C Screening 01/04/2025 Social Influencers of Health Screening 01/04/2025 Influenza Vaccine (#1) 2025 HIB Vaccines Aged Out No longer eligi ble based on patient's age to complete this topic HPV Vaccines Aged Out No longer eligi ble based on patient's age to complete this topic Hepatitis A Vaccines Aged Out No long er eligible based on patient's age to complete this topic IPV Vaccines Aged Out No longer eligi ble based on patient's age to complete this topic MMR Vaccines Aged Out No longer eligi ble based on patient's age to complete this topic Meningococcal ACWY Vaccine Aged Out N o longer eligible based on patient's age to complete this topic Meningococcal B Vaccine Aged Out No l onger eligible based on patient's age to complete this topic Pneumococcal Vaccine: Pediat rics (0 to 5 Years) and At-Risk Patients (6 to 49 Years) Aged Out No longer eligible b ased on patient's age to complete this topic RSV Immunization Patients Un fransisca 20 months Aged Out No longer eligible b ased on patient's age to complete this topic Varicella Vaccines Aged Out No longer eligible based on patient's age to complete this topic Insurance MEDICAID - [place] Care Teams Para Professional Relationship Specialty Start Date End Date Zee Quintero FNP [address] [place] [address] PCP - General Nurse Practitioner 01/03/25
--- OUTSIDE RECORDS SUMMARY | 2025-03-01 14:45 | XMS_ITS | Clinical Summary ---
Author Organization [employer] Address [address] [facility] [address] [place] [address] Care Team Providers Care Port Engineer Name Role Phone DyanZee shen CHERYL Primary Care Provider [phone] Allergies No known active allergies Medications Blood Pressure Monitor kit 1 kit 2 times daily. 1 kit 3 Active cetirizine (ZyrTEC) 10 MG tablet Take 1 tablet (10 mg) by mouth in the morning. 30 tablet 11 3 Active nystatin (Mycostatin) [id number] UNIT/GM powder Apply to affected area 3 times daily 120 g 1 5 01/02/20 26 Active ketoconazole (NIZOral) 2 % creamIndication s:Candidiasis, intertrigo Apply topically Once per day. 40 g 1 5 Active olmesartan (Benicar) 20 MG tablet Take 1 tablet (20 mg) by mouth Once per day. 30 tablet 2 5 02/02/20 26 Active Active Problems Problem Noted Date Diagnosed Date Primary hypertension 02/01/2025 Assessment & Plan (02/01/2025 12:42 PM EDT): Initiate olmesartan 20 mg , Return to clinic in 4 weeks sooner prn Murmur 02/01/2025 Assessment & Plan (02/01/2025 12:42 PM EDT): Echo ordered Mixed hyperlipidemia 01/11/2025 Healthcare maintenance 01/01/2025 Assessment & Plan (01/01/2025 [...] Encounters Date Type Department Care Team Description 02/14/2025 Telephone [facility] [address] [place] [address] Zee Quintero NP Oct recall 02/01/2025 11:15 AM EDT Office Visit [facility] [address] [place] [address] Zee Quintero NP Primary hypertension (Primary Dx); Murmur 02/01/2025 Travel 01/11/2025 Results Follow-Up [facility] [address] [place] [phone] Zee Quintero NP HIV-1/2 Antigen and Antibodies, Fourth Generation, with Reflexes, Hepatitis C Antibody with Reflex to HCV, RNA, Quantitative, Real-Time PCR, RPR (Monitor) with Reflex to Titer, Additional followed-up results: 2 01/01/2025 11:00 AM EDT Office Visit [facility] [address] [place] [phone] Zee Quintero NP Healthcare maintenance (Primary Dx); Elevated blood pressure reading; Encounter for screening mammogram for malignant neoplasm of breast; Dietary counseling; Exercise counseling; Ingrown right big toenail; Paronychia of great toe; Candidiasis, intertrigo 01/01/2025 Travel 12/31/[address] [address] Zee Quintero NP Chart Prep 12/26/2024 Patient Outreach [address] [address] Zee Quintero NP Care Coordination (CHW outreach for SDOH housing search-referral completed ) 12/25/2024 Patient Outreach [address] [address] Zee Quintero NP Pre-visit Planning (SDOH screening [...] t he electric, gas, oil or water [employer] threatened to shut off services in your [...] 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 Not on file Not on file Last Filed Vital Signs Vital Sign Reading Time Taken Comments Blood Pressure 168/106 02/01/2025 11:06 AM EDT Pulse 99 02/01/2025 11:06 AM EDT Temperature 37.3 C (99.2 F) 02/01/2025 11:06 AM EDT Respiratory Rate 16 02/01/2025 11:06 AM EDT Oxygen Saturation - - Inhaled Oxygen Concentration - - Weight 77.4 kg (170 lb 9.6 oz) 02/01/2025 11:06 AM EDT Height 152.4 cm (5') 02/01/2025 11:06 AM EDT Body Mass Index 33.32 02/01/2025 11:06 AM EDT Plan of Treatment Upcoming Encounters Date Type Department Care Team (Late st Contact Info) Description 03/29/2025 11:30 AM EDT Office Visit [facility] [address] [place] [address] Zee Quintero NP [address] [place], [place] [phone] 05/07/2025 1:00 PM EST Procedure Visit [facility] [address] [place] [address] Zee Quintero, CHERYL [address] [place] [address] 06/05/2025 2:00 PM EST Office Visit [facility] [address] [place], [place] [phone] Judith Laughlin, OD [address] [place] [address] Health Maintenance Due Date Last Done Comments Depression Screening 1980 Family Planning (PISQ) 1997 HPV Vaccines (1 - 3-dose series) 1997 Hepatitis B Vaccines (1 of 3 - 19+ 3-dose series) 2001 Pap Smear 2003 Cervical Cancer Screening 2012 HPV/Cotest 2012 COVID-19 Vaccine (2 - 2023-2 5 season) 2024 10/11/2020 Influenza Vaccine (#1) 2025 Mammogram 06/14/2025 06/14/2023, 12/02/2022, 11/25/2022 SDOH Screening 12/25/2025 12/25/2024 Alcohol/Substance Use Screening 01/01/2026 01/01/2025 Disability Screening 01/01/2026 01/01/2025 Tobacco Screening 02/01/2026 02/01/2025 Lipid Panel 01/07/2030 01/07/2025, 11/10/2022 DTaP/Tdap/Td Vaccines (2 - T d or Tdap) 10/26/2030 10/26/2020 Zoster Vaccines (1 of 2) 2032 RSV Patients and Patients Aged 60 years or older (1 - 1-dose 75+ series) 2057 HIV Screening Completed 01/07/2025, 11/10/2022 Hepatitis C Screening Completed 01/07/2025 HIB Vaccines Aged Out No longer eligi [...] Procedure Name Priority Date/Time Associated Diagnosis Comments COMPREHENSIVE METABOLIC PANEL Routine 01/07/2025 12:06 PM EDT Elevated blood pressure reading LIPID PANEL, STANDARD Routine 01/07/2025 12:06 PM EDT Elevated blood pressure reading RPR (MONITOR) W/REFL TITER Routine 01/07/2025 12:06 PM EDT Healthcare maintenance HEPATITIS C AB W/REFL TO HCV RNA, QN, PCR Routine 01/07/2025 12:06 PM EDT Healthcare maintenance HIV 1/2 ANTIGEN/ANTIBODY, FOURTH GENERATION W/RFL Routine 01/07/2025 12:06 PM EDT Healthcare maintenance BI MAMMOGRAM DIAGNOSTIC TOMOSYNTHESIS LEFT Routine 06/14/2023 11:06 AM EST from Last 3 Months or Most Recently Relevant to Health Maintenance Results * Hepatitis C Antibody with Reflex to HCV, RNA, Quantitative, Real-Time PCR (01/07/2025 12:06 PM EDT) Hepatitis C Antibody Nonreactive Nonreactive [facility] Comment:Antibodies to HCV no t detected; does not exclude early acuteHCV infection. Blood Venous blood specimen / Unknown 01/07/2025 12:06 PM EDT 01/07/2025 1:32 PM EDT us Zee Quintero FRONT OFFICE HELP LAB BLOOD ORDERABLES Final Resul t Performing Organization Address City/[facility]/ZIP Co de Phone Number [facility] [address] [place] [address] [phone] * RPR (Monitor) with Reflex to??Titer (01/07/2025 12:06 PM EDT) RPR (Monitor) w/Refl Titer NON-REACTI VE NON-REACT PANTERA [facility] Comment:THIS TEST WAS PERFOR MED AT:[id number] [place] [phone] MALLOY MD Rapid Plasma Reagin Ab Titer TNP [facility] Blood Venous blood specimen / Unknown 01/07/2025 12:06 PM EDT 01/07/2025 1:32 PM EDT us Zee Quintero FRONT OFFICE HELP LAB BLOOD ORDERABLES Final Resul t Performing Organization Address [facility]/ZIP Co de Phone Number [facility] [address] [place] [address] [phone] * HIV-1/2 Antigen and Antibodies, Fourth Generation, with Reflexes (01/07/2025 12:06 PM EDT) HIV AB/AG Nonreactive Nonreactive [facility] Comment:HIV-1 p24 Ag and/or HIV-1/HIV-2 Ab not detected.A test result that is nonreactive does not exclude thepossibility of exposure to or infection with HIV-1 and/orHIV-2. Nonreactive results in this assay for individualswith prior exposure to HIV-1 and/or HIV-2 may be due toantigen and antibody levels that are below the limit ofdetection of this assay.The [employer] HIV Ag/Ab Combo assay result andsupplemental assay results should be interpreted inconjunction with the patient's clinical presentation,history and other laboratory results. If the results areinconsistent with clinical evidence, additional testing issuggested to confirm the result. Blood Venous blood specimen / Unknown 01/07/2025 12:06 PM EDT 01/07/2025 1:32 PM EDT us Zee Quintero FRONT OFFICE HELP LAB BLOOD ORDERABLES Final Resul t Performing Organization Address [facility]/ZIP Co de Phone Number [facility] [address] [place] [address] [phone] * (ABNORMAL) Lipid Panel, Standard (01/07/2025 12:06 PM EDT) Triglycerides 173(H) <150 mg/dL [facility] Comment:Desirable Triglyceri de: less than 150 mg/dLBorderline High Triglyceride 150-199 mg/dLHigh Triglyceride: 200-499 mg/dLVery High Triglyceride: greater than or equal to 5OO mg/dL Cholesterol 233(H) <200 mg/dL [facility] Comment:Desirable Cholestero l: less than 200 mg/dLBorderline High Cholesterol: 200-239 mg/dLHigh Cholesterol: greater than 239 mg/dL LDL Cholesterol Calculated 166(H) <100 mg/dL [facility] Comment:Desirable LDL: less than 100 mg/dLNear Optimal/Above Optimal LDL: 110- 129 mg/dLBorderline High LDL: 130-159 mg/dLHigh LDL: 160-189 mg/dLVery High LDL: greater than or equal to 190 mg/dL HDL Cholesterol 33(L) >40 mg/dL [facility] Comment:Desirable HDL: great er than 40 mg/dL Note: This HDL assay may give artificially low results in patients with liver disease. Blood Venous blood specimen / Unknown 01/07/2025 12:06 PM EDT 01/07/2025 1:32 PM EDT us Zee Quintero NP LAB BLOOD ORDERABLES Final Resul t Performing Organization Address City/[facility]/ZIP Co de Phone Number [facility] [address] [place] [address] [phone] * (ABNORMAL) Comprehensive Metabolic Panel (01/07/2025 12:06 PM EDT) Sodium 139 135 - 145 mmol/L [facility] Potassium 4.3 3.3 - 5.1 mmol/L [facility] Chloride 106 96 - 108 mmol/L [facility] Carbon Dioxide 26 22 - 29 mmol/L [facility] Anion Gap 11(L) 12 - 20 [facility] Urea Nitrogen (BUN) 11 9 - 16 mg/dL [facility] Creatinine, Serum 0.64 0.5 - 1.4 mg/dL [facility] Estimated Glomerular Filt Rate >60 [facility] Comment:Chronic Kidney Disea se: Estimated GFR < 60 mL/min/1.53s1Pahbvm Kidney Disease: Estimated GFR < 15 mL/min/1.73m2 Glucose 103 60 - 115 mg/dL [facility] Calcium 9.3 8.4 - 10.2 mg/dL [facility] Bilirubin, Total 0.4 0.0 - 1.0 mg/dL [facility] Aspartate Amino Transferase 18 5 - 31 U/L [facility] Alanine Aminotransferase 10 0 - 31 U/L [facility] Total Protein 7.3 6.5 - 8.0 g/dL [facility] Albumin Level 4.5 3.5 - 5.0 g/dL [facility] Alkaline Phosphatase 100 39 - 117 U/L [facility] Blood Venous blood specimen / Unknown 01/07/2025 12:06 PM EDT 01/07/2025 1:32 PM EDT us Zee Quintero NP LAB BLOOD ORDERABLES Final Resul t [facility] [address] [place] [address] [phone] * BI Mammogram Diagnostic Tomosynthesis Left (06/14/2023 11:06 AM EST) Anatomical Region Laterality Modality Breast Left Mammography 06/14/2023 11:0 6 AM EST Narrative 06/14/2023 11:40 AM EST [facility] [address] [place], [place] [address] Mammography Report Signed Patient: Tamiko Roche MR#: [id number] : 1980 Acct:[id number] Age/Sex: 43 / F ADM Date: 06/14/23 Loc: HO.MAMMO Attending Dr: Idalia Hightower NP Ordering Physician: Idalia Hightower NP Results: 2Benign Findings Date of Service: 06/14/23 Follow Up: 1 Year From Orig inal Mammogram Procedure(s): MM tomosynthesis diagnostic LT Accession Number(s): [id number] cc: Idalia Hightower NP EXAMINATION: MM DIAGNOSTIC DIGITAL BREAST TOMOSYNTHESIS, RIGHT [...] in OV> 06/14/23 1135 DD/ 1106 TD/TT: Drawing Box Tender: Procedure Note Donotuseinterpreter, Image - 06/14/2023 Yes[facility] [address] [place], [place] [address] Mammography Report Signed Patient: Sarah Roche#: [id number] : 1980Acct:[id number] Age/Sex: 43 / FADM Date: 06/14/23 Loc: HO.MAMMO Attending Dr: Idalia Hightower FRONT OFFICE HELP Ordering Physician: Idalia Hightower NPResults: 2Benign Findings Date of Service: 06/14/23Follow Up: 1 Year From Orig inal Mammogram Procedure(s): MM tomosynthesis diagnostic LT Accession Number(s): [id number] cc: Idalia Hightower FRONT OFFICE HELP EXAMINATION: MM DIAGNOSTIC DIGITAL BREAST TOMOSYNTHESIS, RIGHT [...] in OV> 06/14/23 1135 DD/ 1106 TD/TT: Drawing Box Tender: Idalia Hightower MANAGER [employer] IMG BI PROCEDURES Final Result from Last 3 Months or Most Recently Relevant to Health Maintenance Insurance [facility] [employer] Care Teams Port Engineer Relationship Specialty Start Date End Date Zee Quintero NP [address] [place] [address] PCP - General Family Medicine 10/11/24
== END 2025-03-01 14:43 | disposition home or self-care (01) ==
LOC: HO.MAMMO 14:42
PROVIDERS: PCP Nurse Practitioner Family; Visit Provider Nurse Practitioner Family
DX: Z12.31 Encounter for screening mammogram for malignant neoplasm of breast (principal)
CPT/HCPCS: 77063; 77067

== ENCOUNTER → 2025-03-01 14:45 | Outpatient (BNV) | payer MEDICAID, SELFPAY | PROVIDERS: PCP Nurse Practitioner Family; Visit Provider Internal Medicine | DX: Z12.31 Encounter for screening mammogram for malignant neoplasm of breast (principal) | CPT/HCPCS: 77063; 77067 ==

== ENCOUNTER → 2025-03-07 12:56 | Outpatient (REF) | payer MEDICAID, SELFPAY ==
--- NOTE | 2025-03-07 12:59 | CA_ITS ---
Transthoracic Echocardiogram Patient (Last, First, Middle): Tamiko Roche, Gender: F Date of : 1980 Age: 44 Procedure Date: 03/07/2025 Procedure Type: Transthoracic Echocardiogram Location: OP Height: 152.4 cm Weight: 79.38 kg BSA: 1.76 m2 Heart Rate: 88 bpm BP: 142 / 78 mmHg Product Development Technician: KAMILAH Referring MD: Zee Quintero CYLINDER PRESS OPERATOR Stock Control Supervisor: Toño Jj MD Symptoms: R01.1 MURMUR and HTN Study Quality: Adequate ECG Rhythm: Sinus Conclusions: - 1. Normal LV ejection fraction 55-60% 2. Mild aortic regurgitation 3. Upper limits with normal ascending aortic size 4. No gross pericardial effusion Findings Left Ventricle Normal left ventricular size, thickness, and systolic function. The visually estimated ejection fraction is between 55-60%. Spectral Doppler is indicative of a normal filling pattern. Right Ventricle Normal right ventricular cavity size and systolic function. Atria Both atria are normal in size. Interatrial shunt cannot be excluded. Aortic Valve The aortic valve was not well visualized. There is no aortic valve stenosis. There is mild aortic valve regurgitation. Mitral Valve Normal mitral valve structure and function. There is trace mitral valve regurgitation. There is no mitral valve stenosis. Pulmonic Valve The pulmonic valve is likely normal. There is trace pulmonic valve regurgitation. Tricuspid Valve Tricuspid regurgitation envelope is inadequate for calculation of right ventricular systolic pressure. Normal right atrial pressure. Great Vessels All visible segments of the aorta are normal in size. The pulmonary artery was not well visualized. There is no dilatation of the ascending aorta measuring 3.50 cm. Venous The inferior vena cava is normal in size and collapses greater than 50% with inspiration. Pericardium/Pleural There is no evidence of pericardial effusion. Prior Study Comparison No prior study available for comparison. Measurements 2D Linear Measurements IVSd: 0.98 0.6-0.9/0.6-1.0 cm LVIDd: 4.65 3.9-5.3/4.2-5.9 cm LVIDd Index: 2.64 2.4-3.2/2.2-3.1 cm/m2 LVIDs: 2.78 2.0-3.6 cm LVPWd: 0.98 0.7-1.1 cm LA Diam: 3.20 2.7-3.8/3.0-4.0 cm LAIDs Index: 1.82 1.5-2.3 cm/m2 LV Mass: 195.65 67-162/88-224 g LV Mass Index: 111.17 43-95/49-115 g/m2 LVOT Diam: 2.00 3.0+(-)1.3 cm 2D Systolic Function EF 4C: 57.30 >55% EF 2C: 57.80 >55% EF BiP: 58.00 >55% Mitral Valve MV Pk E: 0.81 MV PK A: 0.74 MV Decel Time: 166.00 E/A: 1.10 E'Lateral: 7.07 E'Medial: 5.11 E/E' Med: 15.90 E/E' Lat: 11.50 PHT: 49.00 MVA PHT: 4.49 Decel Garrard: 4.87 Aortic Valve AoV Pk Terrence: 1.18 AoV Pk Grad: 6.00 PAMELLA: 3.08 AI Pk Terrence: 4.60 AI Garrard: 2.13 LVOT LVOT Pk Terrence: 1.10 LVOT Mn Terrence: 0.73 LVOT VTI: 0.19 LVOT Pk Grad: 5.00 LVOT Mn Grad: 3.00 LVOT Diam: 2.00 LVOT Area: 3.14 Diastolic Function MV Pk E: 0.81 MV Pk A: 0.74 E/A: 1.10 E'Medial: 5.11 E/E' Med: 15.90 E' Laterial: 7.07 E/E' Lat: 11.50 Right Ventricle TAPSE (mm): 20.80 TVS' Terrence: 10.40 Tricuspid Valve RA Press: 3.00 Great Vessels Aorta Sinus of Valsalva: 2.90 2.0-3.5 cm Ao Asc: 3.50 2.1-3.4 cm Ao Arch: 2.80 Pulmonary Veins Pulm Vein S/D 1.60 Pulmonary Valve PV Pk Terrence: 1.13 Peak PV Grad: 5.00 Updated in Other Vendor System with Status of Final Toño Jj MD electronically signed on 03/07/2025 1:58:00 PM with status of Final
--- OUTSIDE RECORDS SUMMARY | 2025-03-07 14:14 | XMS_ITS | Clinical Summary ---
Author Organization [employer] Address [address] [facility] [address] [place] [address] Care Team Providers Care Sulfonator Operator Name Role Phone DyanZee shen CHERYL Primary Care Provider Allergies No known active allergies Medications Blood Pressure Monitor kit 1 kit 2 times daily. 1 kit 3 Active cetirizine (ZyrTEC) 10 MG tablet Take 1 tablet (10 mg) by mouth in the morning. 30 tablet 11 3 Active nystatin (Mycostatin) 490839 UNIT/GM powder Apply to affected area 3 [...] Type Department Care Team Description 02/14/2025 Telephone [facility] [address] [place] [address] Zee Quintero NP Oct recall 02/01/2025 11:15 AM EDT Office Visit [facility] [address] [place] [address] Zee Quintero NP Primary hypertension (Primary Dx); Murmur 02/01/2025 Travel 01/11/2025 Results Follow-Up [facility] [address] [place] [phone] Zee Quintero NP HIV-1/2 Antigen and Antibodies, Fourth Generation, with Reflexes, Hepatitis C Antibody with Reflex to HCV, RNA, Quantitative, Real-Time PCR, RPR (Monitor) with Reflex to Titer, Additional followed-up results: 2 01/01/2025 11:00 AM EDT Office Visit [facility] [address] [place] [phone] Zee Quintero NP Healthcare maintenance (Primary Dx); Elevated blood pressure reading; Encounter for screening mammogram for malignant neoplasm of breast; Dietary counseling; Exercise counseling; Ingrown right big toenail; Paronychia of great toe; Candidiasis, intertrigo 01/01/2025 Travel 12/31/[address] [address] Zee Quintero NP Chart Prep 12/26/2024 Patient Outreach [address] [address] Zee Quintero NP Care Coordination (CHW outreach for SDOH housing search-referral completed ) 12/25/2024 Patient Outreach [address] [address] Zee Quintero NP Pre-visit Planning (SDOH screening [...] t he electric, gas, oil or water [employer] threatened to shut off services in your [...] Industry Job Start Date Job End Date [employer] Not on file Not on file Not [...] Description 03/29/2025 11:30 AM EDT Office Visit [facility] [address] [place] [address] Zee Quintero NP [address] [place], [place] [phone] 05/07/2025 1:00 PM EST Procedure Visit [facility] [address] [place] [address] Zee Quintero, CHERYL [address] [place] [address] 06/05/2025 2:00 PM EST Office Visit [facility] [address], [place] [phone] Judith Laughlin, OD [address] [place] [address] Health Maintenance Due Date Last Done Comments Depression Screening 1982 Family Planning (PISQ) 1997 HPV Vaccines (1 - 3-dose series) 1997 Hepatitis B Vaccines (1 of 3 - 19+ 3-dose series) 2001 Pap Smear 2003 Cervical Cancer Screening 2012 HPV/Cotest 2012 COVID-19 Vaccine (2 - 2024- season) 2025 10/11/2020 Influenza Vaccine (#1) 2025 SDOH Screening 12/25/2025 12/25/2024 Alcohol/Substance Use Screening 01/01/2026 01/01/2025 Disability Screening 01/01/2026 01/01/2025 Tobacco Screening 02/01/2026 02/01/2025 Mammogram 03/01/2027 03/01/2025, 06/03, 12/02/2022, Additional history exists Lipid Panel 01/07/2030 01/07/2025, 11/10/2022 DTaP/Tdap/Td Vaccines (2 - Td or Tdap) 10/26/2030 10/26/2020 Zoster Vaccines (1 [...] 49) Years Aged Out No longer eligible based on patient's age to complete this topic RSV under 20 months Aged Out No longe r eligible based on patient's age to complete this topic Rotavirus Vaccines Aged Out No longer eligible based on patient's age to complete this topic Procedures Procedure Name Priority Date/Time Associated Diagnosis Comments BI MAMMOGRAM SCREENING TOMOSYNTHESIS BILATERAL Routine 03/01/2025 2:44 PM EDT Encounter for screening mammogram for malignant neoplasm of breast COMPREHENSIVE METABOLIC PANEL Routine 01/07/2025 12:06 PM [...] Routine 01/07/2025 12:06 PM EDT Healthcare maintenance from Last 3 Months Results * BI Mammogram Screening Tomosynthesis Bilateral (03/01/2025 2:44 PM EDT) Anatomical Region Laterality Modality Breast Bilateral Mammography 03/01/2025 2:44 PM EDT Narrative 03/05/2025 3:02 PM EDT [facility] [address] [place], [place] [address] Mammography Report Signed Patient: Tamiko Roche MR#: [id number] : 1980 Acct:[id number] Age/Sex: 44 / F ADM Date: 03/01/25 Loc: [facility] Attending Dr: Zee Quintero DIRECTOR WOMEN Ordering Physician: Zee Quintero NP Results: 1Negati ve Date of Service: 03/01/25 Follow Up: 1 Year From Orig ina Mammogram Procedure(s): MM tomosynthesis screening BI Accession Number(s): [id number] cc: Zee Quintero DIRECTOR WOMEN EXAMINATION: MM SCREENING DIGITAL BREAST TOMOSYNTHESIS, BILATERAL CLINICAL INFORMATION: Screening. Asymptomatic. COMPARISON: Mammography: Comparison is made with available priors TECHNIQUE: Digital breast mammography with tomosynthesis is performed in both the craniocaudal and mediolateral oblique views along with computer-aided detection (CAD). FINDINGS: There are scattered areas of fibroglandular density (ACR BI-RADS breast composition Category b). There are no significant masses, abnormal calcifications, or other abnormalities. MM/MM tomosynthesis screening BI IMPRESSION: No mammographic evidence of malignancy. ASSESSMENT: BI-RADS BI-RADS 1 - Negative RECOMMENDATION: Routine annual mammography screening. 1 year F/U This examination should not preclude the clinical evaluation of a suspicious palpable abnormality. This patient's information was entered into a reminder system with a target due date for their next mammogram. Electronically signed by: Kallie Díaz DO 03/05/2025 02:59 PM EDT Dictated By: Kallie Díaz DO Signed By: <Electronically signed by Kallie Díaz DO in OV> 03/05/25 1459 DD/ 1444 TD/TT: 03/01/25 1500 Head Tennis Professional: Procedure Note Donotuseinterpreter, Image - 03/05/2025 [facility] [address] [place], [place] [address] Mammography Report Signed Patient: Sarah Roche#: [id number] : 1980Acct:[id number] Age/Sex: 44 / FADM Date: 03/01/25 Loc: HO.MAMMO Attending Dr: Zee Quintero DIRECTOR WOMEN Ordering Physician: Zee Quintero NPResults: 1Negati ve Date of Service: 03/01/25Follow Up: 1 Year From Orig ina Mammogram Procedure(s): MM tomosynthesis screening BI Accession Number(s): [id number] cc: Zee Quintero DIRECTOR WOMEN EXAMINATION: MM SCREENING DIGITAL BREAST TOMOSYNTHESIS, BILATERAL CLINICAL INFORMATION: Screening. Asymptomatic. COMPARISON: Mammography: Comparison is made with available priors TECHNIQUE: Digital breast mammography with tomosynthesis is performed in both the craniocaudal and mediolateral oblique views along with computer-aided detection (CAD). FINDINGS: There are scattered areas of fibroglandular density (ACR BI-RADS breast composition Category b). There are no significant masses, abnormal calcifications, or other abnormalities. MM/MM tomosynthesis screening BI IMPRESSION: No mammographic evidence of malignancy. ASSESSMENT: BI-RADS BI-RADS 1 - Negative RECOMMENDATION: Routine annual mammography screening. 1 year F/U This examination should not preclude the clinical evaluation of a suspicious palpable abnormality. This patient's information was entered into a reminder system with a target due date for their next mammogram. Electronically signed by: Kallie Díaz DO 03/05/2025 02:59 PM EDT Dictated By: Kallie Díaz DO Signed By: <Electronically signed by Kallie Díaz DO in OV> 03/05/25 1459 DD/ 1444 TD/TT: 03/01/25 1500 Head Tennis Professional: Zee Quintero DIRECTOR WOMEN IMG BI PROCEDURES Final Result * Hepatitis C Antibody with Reflex to HCV, RNA, Quantitative, Real-Time PCR (01/07/2025 12:06 PM EDT) Hepatitis C Antibody Nonreactive Nonreactive [facility] Comment:Antibodies to HCV no t detected; does not exclude early acuteHCV infection. Blood Venous blood specimen / Unknown 01/07/2025 12:06 PM EDT 01/07/2025 1:32 PM EDT us Zee Quintero DIRECTOR WOMEN LAB BLOOD ORDERABLES Final Resul t Performing Organization Address City/[facility]/ZIP Co de Phone Number [facility] [address] [place] [phone] * RPR (Monitor) with Reflex to??Titer (01/07/2025 12:06 PM EDT) RPR (Monitor) w/Refl Titer NON-REACTI VE NON-REACT PANTERA [facility] Comment:THIS TEST WAS PERFOR MED AT:[facility] [place] [phone] MALLOY MD Rapid Plasma Reagin Ab Titer TNP [facility] Blood Venous blood specimen / Unknown 01/07/2025 12:06 PM EDT 01/07/2025 1:32 PM EDT us Zee Quintero DIRECTOR WOMEN LAB BLOOD ORDERABLES Final Resul t Performing Organization Address [facility] Co de Phone Number [facility] [address] [place] [phone] * HIV-1/2 Antigen and Antibodies, Fourth Generation, with Reflexes (01/07/2025 12:06 PM EDT) HIV AB/AG Nonreactive Nonreactive [facility] Comment:HIV-1 p24 Ag and/or HIV-1/HIV-2 Ab not detected.A test result that is nonreactive does not exclude thepossibility of exposure to or infection with HIV-1 and/orHIV-2. Nonreactive results in this assay for individualswith prior exposure to HIV-1 and/or HIV-2 may be due toantigen and antibody levels that are below the limit ofdetection of this assay.[employer] HIV Ag/Ab Combo assay result andsupplemental assay results should be interpreted inconjunction with the patient's clinical presentation,history and other laboratory results. If the results areinconsistent with clinical evidence, additional testing issuggested to confirm the result. Blood Venous blood specimen / Unknown 01/07/2025 12:06 PM EDT 01/07/2025 1:32 PM EDT us Zee Quintero NP LAB BLOOD ORDERABLES Final Resul t Performing Organization Address City/[facility]/ZIP Co de Phone Number [facility] [address] [place] [phone] * (ABNORMAL) Lipid Panel, Standard (01/07/2025 12:06 PM EDT) Triglycerides 173(H) <150 mg/dL [facility] Comment:Desirable Triglyceri de: less than 150 mg/dLBorderline High Triglyceride 150-199 mg/dLHigh Triglyceride: 200-499 mg/dLVery High Triglyceride: greater than or equal to 5OO mg/dL Cholesterol 233(H) <200 mg/dL [facility] Comment:Desirable Cholestero l: less than 200 mg/dLBorderline High Cholesterol: 200-239 mg/dLHigh Cholesterol: greater than 239 mg/dL LDL Cholesterol Calculated 166(H) <100 mg/dL [facility] Comment:Desirable LDL: less than 100 mg/dLNear Optimal/Above Optimal LDL: 110- 129 mg/dLBorderline High LDL: 130-159 mg/dLHigh LDL: 160-189 mg/dLVery High LDL: greater than or equal to 190 mg/dL HDL Cholesterol 33(L) >40 mg/dL [facility] Comment:Desirable HDL: great er than 40 mg/dL Note: This HDL assay may give artificially low results in patients with liver disease. Blood Venous blood specimen / Unknown 01/07/2025 12:06 PM EDT 01/07/2025 1:32 PM EDT us Zee Quintero NP LAB BLOOD ORDERABLES Final Resul t Performing Organization Address City/[facility]/ZIP Co de Phone Number [facility] [address] [place] [phone] * (ABNORMAL) Comprehensive Metabolic Panel (01/07/2025 12:06 PM EDT) Sodium 139 135 - 145 mmol/L [facility] Potassium 4.3 3.3 - 5.1 mmol/L [facility] Chloride 106 96 - 108 mmol/L [facility] Carbon Dioxide 26 22 - 29 mmol/L [facility] Anion Gap 11(L) 12 - 20 [facility] Urea Nitrogen (BUN) 11 9 - 16 mg/dL [facility] Creatinine, Serum 0.64 0.5 - 1.4 mg/dL [facility] Estimated Glomerular Filt Rate >60 [facility] Comment:Chronic Kidney Disea se: Estimated GFR < 60 mL/min/[id number] Kidney Disease: Estimated GFR < 15 mL/min/1.73m2 Glucose 103 60 - 115 mg/dL [facility] Calcium 9.3 8.4 - 10.2 mg/dL [facility] Bilirubin, Total 0.4 0.0 - 1.0 mg/dL [facility] Aspartate Amino Transferase 18 5 - 31 U/L [facility] Alanine Aminotransferase 10 0 - 31 U/L [facility] Total Protein 7.3 6.5 - 8.0 g/dL [facility] Albumin Level 4.5 3.5 - 5.0 g/dL [facility] Alkaline Phosphatase 100 39 - 117 U/L [facility] Blood Venous blood specimen / Unknown 01/07/2025 12:06 PM EDT 01/07/2025 1:32 PM EDT us Zee Quintero DIRECTOR WOMEN LAB BLOOD ORDERABLES Final Resul t [facility] [address] [place] [phone] from Last 3 Months Insurance [facility] C3 Care Teams Sulfonator Operator Relationship Specialty Start Date End Date Zee Quintero NP [address] [place] [phone] PCP - General Family Medicine 10/11/24
== END ==
LOC: HO.CARD 12:56
PROVIDERS: PCP Nurse Practitioner Family; Visit Provider Nurse Practitioner Family
DX: R01.1 Cardiac murmur, unspecified (principal)
CPT/HCPCS: 93306

== ENCOUNTER → 2025-03-07 12:59 | Outpatient (BNV) | payer MEDICAID, SELFPAY | PROVIDERS: PCP Nurse Practitioner Family; Visit Provider Internal Medicine Cardiovascular Disease | DX: R01.1 Cardiac murmur, unspecified (principal) | CPT/HCPCS: 93306 ==